=== PATIENT | female | born 1970 | race Caucasian/White ===

== ENCOUNTER 2017-10-20 05:49 | Day surgery (SDC) | payer BC, MEDICAID, OTHER ==
[2017-10-20] MEDS ORDERED: Lactated Ringers 1,000 ML IV SCH (06:15)
[2017-10-20] MEDS ORDERED: Cyanocobalamin (Vitamin B12) 1,000 MCG/ML SDV IM ONE (06:30)
[2017-10-20] MEDS ORDERED: Glycopyrrolate 0.2 MG/ML 2 ML SYRINGE IVPUSH ONE (06:30)
[2017-10-20] MEDS ORDERED: Midazolam 1 MG/ML 2 ML SDV ONE (07:06)
[2017-10-20] MEDS ORDERED: fentaNYL 100 MCG/2 ML SDV ONE (07:06)
[2017-10-20] MEDS ORDERED: Propofol 200 MG/20 ML SDV ONE (07:06)
[2017-10-20] MEDS ORDERED: MVI, Adult with Vitamin K 10 ML, Thiamine 200 MG, Chromium/Copper/Mang/Selen/Zn 1 ML in... IV ONE ×4 (07:15)
[2017-10-20] MEDS ORDERED: fentaNYL 250 MCG/5 ML SDV ONE (07:26)
[2017-10-20 08:56] VITALS: BP 98/65
--- NOTE | 2017-10-21 17:54 | OR ---
DATE OF PROCEDURE: 10/20/2017 PREOPERATIVE DIAGNOSIS: Epigastric pain, status post Ping-en-Y gastric bypass. POSTOPERATIVE DIAGNOSES: Epigastric pain, status post Ping-en-Y gastric bypass associated with an ulcerated distal esophagitis and mild pouch gastritis. OPERATIVE PROCEDURE: Upper GI endoscopy with biopsy of gastric pouch for CLOtest. ANESTHESIA: IV sedation. INDICATION FOR PROCEDURE: This is a 47-year-old status post Ping-en-Y gastric bypass in 2005. Generally she had a good result. Recently she had problems with epigastric discomfort along with some mild discomfort in the left subcostal area. She was just a few days ago, started on Protonix, and she was started on Carafate as well but was unable to afford that medication. Plan is to proceed with an upper GI endoscopy with biopsies and dilation as indicated. Potential risks including bleeding and perforation were discussed, and the patient wishes to proceed. DETAILS OF THE PROCEDURE: The patient was taken to the operating room and placed in a left lateral decubitus position. IV sedation was administered, after which the upper GI endoscope was passed orally through the length of the esophagus, into the level of the gastrojejunostomy, gastric pouch, and roughly 20 cm into the Ping limb. Findings included normal hypopharynx, larynx, upper esophageal sphincter, and esophageal body. At the EG junction, there was some obvious inflammation, consistent with some distal most esophagitis symptoms and red spots in the gastric mucosa as well, consistent with some tiny erosions, no stricturing or gross evidence of neoplasia was seen, and the gastrojejunostomy was wide open without any associated inflammation or marginal ulcer. Remaining portion of the visualized Ping limb was unremarkable. At this point, biopsies were obtained from the gastric pouch, sent for CLOtest for H. pylori. Minimal bleeding from the biopsy sites was seen and the procedure concluded. The patient was taken to the recovery room in satisfactory condition. Plan will be to continue the Protonix and add Gaviscon on a p.r.n. basis. She will be following up with Isabella Blair at [facility] in roughly 1 month. Clemente Shirley MD /[id number]
== END 2017-10-20 09:50 | disposition home or self-care (01) ==
LOC: JP.SDS 05:49
PROVIDERS: ATTEND Surgery
DX: K29.70 Gastritis, unspecified, without bleeding (principal); K22.10 Ulcer of esophagus without bleeding; Z98.84 Bariatric surgery status; Z88.1 Allergy status to other antibiotic agents; Z88.8 Allergy status to other drugs, medicaments and biological substances
CPT/HCPCS: 43239; 87081; J2250; J2704; J3010; J3411; J3420; J7120

== ENCOUNTER 2018-02-02 07:30 | Inpatient (IN) | payer BC ==
[~2018-02-02 07:30] MED LIST: Meropenem 500 MG SDV ONE
[2018-02-02] MEDS ORDERED: Acetaminophen 500 MG Tab PO ONE (08:05)
[2018-02-02] MEDS ORDERED: Dextrose 5%-Lactated Ringers 1,000 ML IV SCH (08:30)
[2018-02-02] MEDS ORDERED: Neostigmine Methylsulfate 1 MG/ML 5 ML Syringe ONE (08:35)
[2018-02-02] MEDS ORDERED: Succinylcholine 200 MG/10 ML MDV ONE (08:35)
[2018-02-02] MEDS ORDERED: Dexamethasone 4 MG/ML SDV ONE (08:35)
[2018-02-02] MEDS ORDERED: Ondansetron 4 MG/2 ML SDV ONE (08:35)
[2018-02-02] MEDS ORDERED: Rocuronium 50 MG/5 ML Vial ONE (08:35)
[2018-02-02] MEDS ORDERED: Glycopyrrolate 0.2 MG/ML 5 ML MDV ONE (08:35)
[2018-02-02] MEDS ORDERED: Propofol 200 MG/20 ML SDV ONE (08:35)
[2018-02-02] MEDS ORDERED: Albuterol/Ipratropium 3.0-0.5 MG/3 ML Neb Soln NEB ONE (08:45)
[2018-02-02] MEDS ORDERED: HYDROmorphone/Normal Saline 15 MG/30 ML PCA IV PRN (09:01)
[2018-02-02] MEDS: Meropenem 500 MG in Sodium Chloride 0.9% 50 ML IV ONE ×2 (09:46→13:20)
[2018-02-02] MEDS ORDERED: Naloxone 0.4 MG/ML SDV IV PRN ×2 (10:05→14:25)
[2018-02-02] MEDS ORDERED: Linezolid 200 MG/100 ML Bag IRR ONE (10:42)
[2018-02-02] MEDS ORDERED: Mupirocin Oint 22 GM Tube TOP ONE (11:45)
[2018-02-02] MEDS ORDERED: Ondansetron 4 MG/2 ML SDV IV PRN (13:12)
[2018-02-02] MEDS ORDERED: Albuterol/Ipratropium 3.0-0.5 MG/3 ML Neb Soln INH PRN (13:23)
[2018-02-02] MEDS ORDERED: hydrOXYzine HCl 100 MG/2 ML SDV IM PRN (13:23)
[2018-02-02] MEDS ORDERED: diphenhydrAMINE 50 MG/ML SDV IVPUSH PRN (14:11)
[2018-02-02] MEDS: Meperidine 300 MG/30 ML PCA Vial IV PRN (15:37)
[2018-02-02] MEDS ORDERED: Pantoprazole 40 MG Vial IV SCH (16:00)
[2018-02-02] MEDS: Meropenem 500 MG in Sodium Chloride 0.9% 50 ML IV SCH ×2 (16:31→21:26)
[2018-02-02] MEDS: Sucralfate Suspension 1 GM/10 ML Cup PO SCH ×2 (16:32→21:18)
[2018-02-02] MEDS: Albuterol/Ipratropium 3.0-0.5 MG/3 ML Neb Soln INH SCH ×2 (16:38→21:19)
[2018-02-02] MEDS: Dextrose 5%-Lactated Ringers 1,000 ML IV SCH (16:48)
[2018-02-02] MEDS ORDERED: traZODone 50 MG Tab PO SCH (21:00)
[2018-02-02] MEDS: Mupirocin Oint 22 GM Tube TOP SCH (21:19)
[2018-02-03] MEDS: Dextrose 5%-Lactated Ringers 1,000 ML IV SCH (00:20)
[2018-02-03] MEDS: Meperidine 300 MG/30 ML PCA Vial IV PRN (01:58)
[2018-02-03] MEDS: Meropenem 500 MG in Sodium Chloride 0.9% 50 ML IV SCH ×4 (02:51→21:19)
[2018-02-03] MEDS ORDERED: Non-Formulary Medication 1 Each (Budesonide/Formoterol Fumarate [Symbicort 80-4.5 Mcg Inha INH PRN (07:07)
[2018-02-03] MEDS ORDERED: traZODone 50 MG Tab PO PRN (07:07)
[2018-02-03] MEDS ORDERED: Dextrose 5%-Lactated Ringers 1,000 ML IV SCH (07:15)
[2018-02-03] MEDS: Sucralfate Suspension 1 GM/10 ML Cup PO SCH ×4 (07:44→19:58)
[2018-02-03] MEDS: Acetaminophen/HYDROcodone 325-5 MG Tab PO PRN ×4 (07:59→19:59)
[2018-02-03] MEDS ORDERED: Sucralfate 1 GM Tab PO SCH (08:00)
[2018-02-03] MEDS ORDERED: Escitalopram 10 MG Tab PO SCH (09:00)
--- NOTE | 2018-02-03 09:47 | PN ---
DATE OF SERVICE: 02/03/2018 SUBJECTIVE: Shalini is postoperative day 1 and her pain is controlled. She has been up, ambulating. Vital signs are stable. Oral intake of ice chips. Urine output is via Gresham catheter, 1604. MOISES drains have put out 85 and 65 respectively of a light red serous drainage. REVIEW OF SYSTEMS: Remainder of review of systems was negative for any pertinent positives and negatives. OBJECTIVE: GENERAL: Shalini is a pleasant 47-year-old female. VITAL SIGNS: Temperature is 98.4, pulse is 50, respirations are 14, and blood pressure is 90/51. HEENT: Negative. NECK: Supple. HEART: Regular rate and rhythm. LUNGS: Clear. ABDOMEN: Dressings are dry and intact. Ike-Lora drains x2 are intact as above, and abdominal binder is on. EXTREMITIES: Without peripheral edema. ASSESSMENT: Panniculectomy, repair of incarcerated umbilical hernia, and repair of non- incarcerated incisional hernia for chronic panniculitis and back pain secondary to large pannus, with a 161-pound weight loss following Ping-en-Y gastric bypass surgery and incarcerated umbilical hernia/non-incarcerated incisional hernia of right lower quadrant. Date of surgery was 02/02/2018. Surgeon was Clemente Shirley MD. PLAN: 1. Discontinue Gresham catheter. 2. Step-4 gastric bypass diet. 3. Discontinue ACADEMIC AFFAIRS ASSISTANT and continuous with pulse ox. 4. Rhame 5/325 mg, 1 to 2 every four hours p.r.n. pain. 5. Decrease IV to 100 mL per hour. 6. D5, lactated Ringer at 100 mL/hr. 7. Lexapro 10 mg p.o. daily. 8. Omeprazole 40 mg p.o. at bedtime. 9. Discontinue IV Protonix. 10.Carafate 10 mL p.o. q.i.d. and at bedtime. 11.Trazodone 50 mg p.o. at bedtime. 12.Dressing off, may shower. 13.Teach patient to strip, empty, measure, and record MOISES drains four times a day and when half full. 14.Plan to discharge in a.m. 15.We will evaluate p.r.n. or in a.m. Isabella Blair PA-C /[id number]
[2018-02-03] MEDS: Formoterol/Mometasone 100-5 MCG 8.8 GM Inhaler IH SCH (10:15)
[2018-02-03] MEDS: Mupirocin Oint 22 GM Tube TOP SCH ×2 (10:16→21:19)
[2018-02-03] MEDS: Albuterol/Ipratropium 3.0-0.5 MG/3 ML Neb Soln INH SCH ×4 (10:16→21:18)
[2018-02-03] MEDS: Escitalopram 10 MG Tab PO SCH (10:17)
[2018-02-03] MEDS ORDERED: Pantoprazole 40 MG Tab.CR PO SCH (21:00)
[2018-02-03] MEDS: Lactobacillus Rhamnosus GG (Probiotic) Cap PO SCH (21:18)
[2018-02-04] MEDS: Acetaminophen/HYDROcodone 325-5 MG Tab PO PRN ×3 (00:18→08:27)
[2018-02-04] MEDS: Meropenem 500 MG in Sodium Chloride 0.9% 50 ML IV SCH ×2 (03:59→08:30)
[2018-02-04] MEDS: Formoterol/Mometasone 100-5 MCG 8.8 GM Inhaler IH SCH (07:42)
[2018-02-04] MEDS: Albuterol/Ipratropium 3.0-0.5 MG/3 ML Neb Soln INH SCH (07:42)
[2018-02-04 07:45] VITALS: BP 99/52
[2018-02-04] MEDS: Mupirocin Oint 22 GM Tube TOP SCH (08:28)
[2018-02-04] MEDS: Sucralfate Suspension 1 GM/10 ML Cup PO SCH (08:28)
[2018-02-04] MEDS: Escitalopram 10 MG Tab PO SCH (08:29)
[2018-02-04] MEDS: Lactobacillus Rhamnosus GG (Probiotic) Cap PO SCH (08:29)
--- NOTE | 2018-02-04 09:44 | DISCH ---
ADMISSION DIAGNOSES: 1. Chronic panniculitis. 2. Status post Ping-en-Y gastric bypass surgery. 3. Unspecified surgical malabsorption. 4. B12 deficiency. 5. Vitamin D deficiency. 6. Hypothyroidism. 7. Anxiety/depression. DISCHARGE DIAGNOSES: Panniculectomy, repair of incarcerated umbilical hernia and repair of non-incarcerated incisional hernia for chronic panniculitis and back pain secondary to large pannus with a 161-pound weight loss following Ping-en-Y gastric bypass surgery, incarcerated umbilical hernia, incarcerated incisional hernia of the right lower quadrant. Date of surgery, 02/02/2018. Surgeon, Clemente Shirley MD. HISTORY: Shalini Hernandez is a 47-year-old female who had a Ping-en-Y gastric bypass surgery with a 161-pound weight loss. She developed chronic panniculitis and chronic back pain due to large pannus. After preoperative evaluation and discussion of possible risks and possible complications, she wished to proceed with surgical procedure. HOSPITAL COURSE: Shalini had her surgery on 02/02/2018. She had no operative complications. On postop day #1, her Gresham catheter was discontinued. She was started on a diet, step-4 gastric bypass diet, and oral pain medications. On postop day #2, her pain was well managed, and her activity was good. She was taught MOISES drain care. She was able to be discharged to home. PHYSICAL EXAMINATION: GENERAL: Shalini is a pleasant 47-year-old female. VITAL SIGNS: Height is 5 feet 6.93 inches. Weight is 140 pounds. TPR 97.6, 54, 16, and blood pressure 87/53. HEENT: Negative. NECK: Supple. HEART: Regular rate and rhythm. LUNGS: Clear. ABDOMEN: Stapled incision looks good. Two MOISES drains intact and have been draining a light pink serosanguineous drainage of 95 and 70 mL respectively. EXTREMITIES: Without peripheral edema. DISPOSITION: Discharged to home. CONDITION: Stable and improving. FOLLOWUP APPOINTMENT: Isabella Blair PA-C, on 02/15/2018 at 11 a.m. DISCHARGE MEDICATIONS: Home medications; 1. [place] 5/325 mg 1 to 2 tabs every 4 hours p.r.n. pain, #40. 2. Bactroban ointment, use twice daily around MOISES drain site. She is to resume her home medications of; 1. Tylenol 650 mg every 4 hours, to watch dose so that she does not overdose on Tylenol. 2. Fentanyl 2 puffs inhalation every 4 hours. 3. Nephrocaps. 4. Biotin 1 tablet daily. 5. Symbicort 80/4.5 mcg inhaler, 2 puffs daily as needed. 6. Vitamin B12 1000 mcg sublingual daily. 7. Lexapro 10 mg oral daily. 8. Multivitamin 1 tablet twice daily. 9. Omeprazole 40 mg oral at bedtime. 10.Carafate 10 mL before meals and at bedtime. 11.Thiamine 100 mg oral daily. 12.Trazodone 50 mg oral at bedtime. DISCHARGE DIET: Usual diet as tolerated. Drink 8 to 10 glasses of water a day. ACTIVITY: No lifting greater than 10 pounds for 6 weeks[address] Driving, do not drive while on pain medication. Shower/bathing, may shower. DISCHARGE INSTRUCTIONS: 1. Notify provider if any fever, increased pain, swelling, redness, drainage, nausea, or vomiting. Keep site clean and dry. Wear abdominal binder for 6 weeks and then as tolerated. 2. Strip, empty, measure, and record MOISES drains 4 times a day and when half full. Bring record of MOISES drainage to clinic appointments. 3. Use incentive spirometer 10 times every hour while awake.
--- NOTE | 2018-02-08 08:31 | OR ---
DATE OF PROCEDURE: 02/02/2018 PREOPERATIVE DIAGNOSES: Large abdominal pannus associated with chronic panniculitis (fungal related inflammation) and back pain secondary to the large size pannus. POSTOPERATIVE DIAGNOSES: 1. Large abdominal pannus associated with chronic panniculitis (fungal related inflammation) and back pain secondary to the large size pannus. 2. Incarcerated umbilical hernia. 3. Non-incarcerated incisional hernia. OPERATIVE PROCEDURES: 1. Panniculectomy (97572). 2. Repair of incarcerated umbilical hernia (69690). 3. Repair of non-incarcerated incisional hernia (46251). ANESTHESIA: General. GREEN CHAIN PULLER: Isabella Blair PA-C, and CATRINA Mendez. INDICATIONS FOR PROCEDURE: This is a 47-year-old presenting status post Ping-en-Y gastric bypass with large abdominal pannus that has been chronically inflamed on its underside, despite medical management. She is also having quite a bit in the way of back problems, and in fact, she is going to be having back surgery shortly, and to facilitate her perioperative care following the back surgery, the panniculectomy will likewise be beneficial. Potential risks including bleeding, infection, injury to underlying viscera, possible cosmetic deformity related to the process were all reviewed, and the patient wishes to proceed. DETAILS OF PROCEDURE: The patient was taken to the operating room. After general endotracheal anesthesia was induced, Gresham catheter was inserted and the abdomen was prepped and draped. A transversely oriented elliptical incision across the lower abdomen was then made and carried down through the skin, subcutaneous tissue, and down into the level of fascia. The subcutaneous tissue was then reflected off the fascia, initially from the left side along a portion of the umbilicus. The patient was noted to have an umbilical hernia. This contained some incarcerated omentum and preperitoneal fat within it. This was then opened, the contents displaced back into the peritoneal cavity, and that incarcerated umbilical hernia was then repaired with a [id number] stitch of #2 Vicryl stitch. Further dissection toward the right revealed the patient had an incisional hernia present also in the area of the previous appendectomy incision. This was then likewise turned inward, and the incisional hernia was then closed with a running #1 Vicryl stitch at the fascia level. The remaining attachments of the pannus were then removed. The area was irrigated with meropenem-containing saline solution, and two Ike-Lora drains were placed superior to the main incision. The incision was then closed with 2 layers of 3-0 and 4-0 Vicryl stitch deep and angela for the skin. Drains were affixed with some 4-0 Vicryl stitch, and the patient was taken to the recovery room in satisfactory condition. There were no evident complications. Physician dental assistant teacher, Isabella Blair, played an essential role in assisting in this case, helping to position the patient, retract structures as needed, as well as suturing and cutting sutures as indicated. Her presence improved patient safety and decreased operative time. Clemente Shirley MD /[id number]
== END 2018-02-04 09:05 | disposition home or self-care (01) | DRG 952 ==
LOC: EDSTATUS 07:30 → JP.SDSSCHI 07:46 → JP.SDS 07:46 → JP.MS 11:15
PROVIDERS: ADMIT Surgery; ATTEND Surgery
PROC: 0HB7XZZ Excision of Abdomen Skin, External Approach (ICD-10-PCS; principal; 2018-02-02)
PROC: 0WQF0ZZ Repair Abdominal Wall, Open Approach (ICD-10-PCS; 2018-02-02)
PROC: 0WQF0ZZ Repair Abdominal Wall, Open Approach (ICD-10-PCS; 2018-02-02)
DX: M54.09 Panniculitis affecting regions, neck and back, multiple sites in spine (principal); K42.0 Umbilical hernia with obstruction, without gangrene; K43.2 Incisional hernia without obstruction or gangrene; K91.2 Postsurgical malabsorption, not elsewhere classified; E53.8 Deficiency of other specified B group vitamins; E55.9 Vitamin D deficiency, unspecified; Z98.84 Bariatric surgery status; Z98.0 Intestinal bypass and anastomosis status; F32.9 Major depressive disorder, single episode, unspecified; F41.9 Anxiety disorder, unspecified; K21.9 Gastro-esophageal reflux disease without esophagitis; G89.29 Other chronic pain; E65 Localized adiposity; Z88.6 Allergy status to analgesic agent; Z88.1 Allergy status to other antibiotic agents; Z88.5 Allergy status to narcotic agent; Z88.8 Allergy status to other drugs, medicaments and biological substances; G47.30 Sleep apnea, unspecified; B36.8 Other specified superficial mycoses; E03.9 Hypothyroidism, unspecified
CPT/HCPCS: 36415; 82607; 82728; 82746; 88302; 88305; 94640; 94640-76; 94762; A9270-GY; C9113; J0330; J1100; J1170; J1200; J2020; J2175; J2185; J2405; J2704; J2710; J3010; J3410; J7042; J7050; J7620